=== PATIENT | male | born 1960 | race African-American/Black ===

== ENCOUNTER 2017-10-23 13:05 | Emergency (ER) | payer MEDICARE | END 2017-10-23 14:35 | disposition home or self-care (01) | LOC: D.ER 13:05 | DX: S16.1XXA Strain of muscle, fascia and tendon at neck level, initial encounter (principal); V43.52XA Car driver injured in collision with other type car in traffic accident, initial encounter; Y93.89 Activity, other specified; Y92.410 Unspecified street and highway as the place of occurrence of the external cause; I10 Essential (primary) hypertension; K21.9 Gastro-esophageal reflux disease without esophagitis ==

== ENCOUNTER 2017-11-20 18:26 | Emergency (ER) | payer MEDICARE, OTHER | END 2017-11-20 20:59 | disposition home or self-care (01) | LOC: D.ER 18:26 | DX: S29.012A Strain of muscle and tendon of back wall of thorax, initial encounter (principal); V89.2XXA Person injured in unspecified motor-vehicle accident, traffic, initial encounter; Y93.89 Activity, other specified; Y92.410 Unspecified street and highway as the place of occurrence of the external cause; M62.838 Other muscle spasm; K21.9 Gastro-esophageal reflux disease without esophagitis; I10 Essential (primary) hypertension ==